=== PATIENT | female | born 1995 | race Caucasian/White ===

== ENCOUNTER 2019-05-18 11:57 | Outpatient (CLI) | payer BC ==
--- NOTE | 2019-05-18 12:22 | RAD ---
EXAM: Two views chest PROVIDED CLINICAL HISTORY: Dyspnea COMPARISON: None FINDINGS: Cardiac and mediastinal silhouette appears within normal limits. Lungs appear free of significant opa city. No pleural fluid or pneumothorax apparent. Median sternotomy changes are seen. IMPRESSION: No evidence for an acute cardiopulmonary process.
== END 2019-05-18 11:58 | disposition home or self-care (01) ==
LOC: RAD 11:57
PROVIDERS: ATTEND Internal Medicine Pulmonary Disease
DX: R06.00 Dyspnea, unspecified (principal)
CPT/HCPCS: 71046

== ENCOUNTER 2020-11-29 09:32 | Outpatient (CLI) | payer BC | END 2020-11-29 09:33 | disposition home or self-care (01) | LOC: RAD 09:32 | PROVIDERS: ATTEND Obstetrics & Gynecology | DX: Q51.9 Congenital malformation of uterus and cervix, unspecified (principal); Z98.890 Other specified postprocedural states | CPT/HCPCS: 58340; 74740 ==

== ENCOUNTER 2022-03-28 13:37 | Outpatient (CLI) | payer BC ==
[~2022-03-28 13:37] MED LIST: Iopamidol 200 41% 50 ML VIAL FS ONE
[2022-03-28 14:06] LABS: BHCG - Serum Negative (NEGATIVE); Pregs Control Background? CLEAR/WHITE (CLR/WHITE); Pregs Control Bar Appear? YES (CONTROL BAR)
== END 2022-03-28 13:38 | disposition home or self-care (01) ==
LOC: RAD 13:37
PROVIDERS: ATTEND Obstetrics & Gynecology
DX: Q51.9 Congenital malformation of uterus and cervix, unspecified (principal)
CPT/HCPCS: 36415; 58340; 74740; 84703